=== PATIENT | male | born 1955 | race Caucasian/White ===

== ENCOUNTER 2021-04-15 20:27 | Inpatient (IN) | payer OTHER ==
[~2021-04-15] VITALS: Ht 188 cm; Wt 101.0 kg
--- NOTE | 2021-04-15 20:31 | NUR ---
PT IN BR WHEN CALLED
--- NOTE | 2021-04-15 20:48 | NUR ---
PT W AFIB RVR. FELT RAPID HR SINCE LAST NIGHT 1899. ALSO STS SWELLING IN LEG. CHEST "STIFFNESS". SOB SINCE LAST NIGHT. BP STABLE. [facility] AT BEDSIDE FOR EVAL.
[2021-04-15] MEDS ORDERED: DILTIAZEM 5 MG/ML, 5ML ONE ×2 (20:51→21:06)
[2021-04-15 20:54] LABS: MEAN CORPUSCULAR HEMOGLOBIN 31.7 pg (27.5-34.5); MEAN CORPUSCULAR HGB CONC 34.2 g/dL (33.2-36.2); MEAN PLATELET VOLUME 9.5 fL (7.4-10.4); PLATELET COUNT 97 x10^3/uL (130-400); RED CELL DISTRIBUTION WIDTH 15.9 % (9.4-14.8)
[2021-04-15] MEDS ORDERED: ASPIRIN 81 MG TABLET CHEW ONE (20:58)
[2021-04-15] MEDS ORDERED: DILTIAZEM 5 MG/ML, 5ML IV ONE ×2 (21:00→21:30)
[2021-04-15] MEDS ORDERED: ASPIRIN 81 MG TABLET CHEW PO ONE (21:00)
[2021-04-15 21:07] LABS: ALANINE AMINOTRANSFERASE 64 U/L (12-78); ALBUMIN 3.8 g/dL (3.4-5.0); ANION GAP 8 mmol/L (5-15); CALCIUM 8.9 mg/dL (8.5-10.1); CHLORIDE 108 mmol/L (98-107); CREATININE 1.42 mg/dL (0.7-1.3)
[2021-04-15 21:17] LABS: ALKALINE PHOSPHATASE 120 U/L (45-117); BILIRUBIN,TOTAL 0.9 mg/dL (0.2-1.0); TOTAL PROTEIN 7.2 g/dL (6.4-8.2); TROPONIN I < 0.015 ng/mL (0.000-0.045)
--- NOTE | 2021-04-15 21:26 | NUR ---
2ND DOSE CARDIZEM PER MD. PT REPORTS HIS CHEST FEELS LESS "STIFF AND BURNING".
[2021-04-15 21:28] LABS: BANDS%(MANUAL) 2 % (0-7); EOS#(MANUAL) 0.05 x10^3/uL (0.0-0.4); EOS% (MANUAL) 1 % (1-7); LYMPH#(MANUAL) 1.44 x10^3/uL (1-3.4); LYMPHS% (MANUAL) 30 % (22-44); METAMYELOCYTES# (MANUAL) 0.05 x10^3/uL (0-0); METAMYELOCYTES% (MANUAL) 1 % (0-1); MONOS#(MANUAL) 0.14 x10^3/uL (0.3-2.7); MONOS% (MANUAL) 3 % (2-9); SEG#(MANUAL) 3.02 x10^3/uL (1.8-6.8); SEGS% (MANUAL) 63 % (42-75)
[2021-04-15 21:29] LABS: <PLATELET ESTIMATE> DECREASED; <PLT MORPHOLOGY> NORMAL PLT MORPH; ANISOCYTOSIS 1+
[2021-04-15] MEDS ORDERED: DILTIAZEM 125 MG in SODIUM CHLORIDE 0.9% 100 ML IV SCH (22:00)
[2021-04-15] MEDS ORDERED: FUROSEMIDE 40 MG/4 ML IVPush ONE (22:00)
[2021-04-15] MEDS ORDERED: HEPARIN 25,000 UNITS/250ML PMX 250 ML ONE (22:03)
[2021-04-15] MEDS ORDERED: FUROSEMIDE 40 MG/4 ML ONE (22:03)
[2021-04-15] MEDS ORDERED: HEPARIN 5,000 UNITS/ML, 1ML ONE (22:17)
[2021-04-15] MEDS ORDERED: HEPARIN 5,000 UNITS/ML, 1ML IV ONE (22:30)
[2021-04-15] MEDS: HEPARIN 25,000 UNITS/250ML PMX 250 ML IV PRN (22:42)
[2021-04-16] MEDS ORDERED: NITROGLYCERIN 0.4 MG BOTTLE (25 TABS) SL PRN
[2021-04-16] MEDS ORDERED: DOCUSATE 100 MG CAPSULE PO PRN
[2021-04-16] MEDS ORDERED: DILTIAZEM 125 MG in SODIUM CHLORIDE 0.9% 100 ML IV SCH
[2021-04-16] MEDS ORDERED: MELATONIN 5 MG TABLET PO PRN
[2021-04-16 00:18] VITALS: BP 119/76
[2021-04-16 02:21] VITALS: BP 110/72
[2021-04-16 05:20] LABS: MEAN CORPUSCULAR HEMOGLOBIN 31.7 pg (27.5-34.5); MEAN CORPUSCULAR HGB CONC 34.2 g/dL (33.2-36.2); MEAN PLATELET VOLUME 10.9 fL (7.4-10.4); PLATELET COUNT 96 x10^3/uL (130-400); RED BLOOD COUNT 4.53 x10^6/uL (4.38-5.82); RED CELL DISTRIBUTION WIDTH 16.1 % (9.4-14.8)
[2021-04-16 05:23] LABS: ANION GAP 9 mmol/L (5-15); CALCIUM 8.8 mg/dL (8.5-10.1); CHLORIDE 108 mmol/L (98-107)
[2021-04-16 05:28] LABS: CHOL/HDL RATIO 3.9; CHOLESTEROL, TOTAL 125 mg/dL (140-239); CREATININE 1.43 mg/dL (0.7-1.3); HDL CHOL % 26 % (26-37); HDL CHOLESTEROL (DIRECT) 32 mg/dL (40-60); LDL CHOLESTEROL,CALCULATED 79 mg/dL (54-169); LDL/HDL RATIO 2.5 (0.5-3.0); TRIGLYCERIDES 72 mg/dL (50-200); TROPONIN I < 0.015 ng/mL (0.000-0.045); VLDL CHOLESTEROL 14 mg/dL (0-25)
[2021-04-16] MEDS: HEPARIN 5,000 UNITS/ML, 1ML IV PRN ×2 (05:33→12:09)
[2021-04-16 05:50] LABS: BAND#(MANUAL) 0.38 x10^3/uL; BANDS%(MANUAL) 8 % (0-7); BASOS#(MANUAL) 0.05 x10^3/uL (0-0.1); BASOS% (MANUAL) 1 % (0-1); EOS#(MANUAL) 0.05 x10^3/uL (0.0-0.4); EOS% (MANUAL) 1 % (1-7); LYMPHS% (MANUAL) 27 % (22-44); METAMYELOCYTES# (MANUAL) 0.14 x10^3/uL (0-0); METAMYELOCYTES% (MANUAL) 3 % (0-1); MONOS#(MANUAL) 0.58 x10^3/uL (0.3-2.7); MONOS% (MANUAL) 12 % (2-9); MYELOCYTES# (MANUAL) 0.05 x10^3/uL (0-0); MYELOCYTES% (MANUAL) 1 % (0-0); SEG#(MANUAL) 2.26 x10^3/uL (1.8-6.8); SEGS% (MANUAL) 47 % (42-75)
[2021-04-16 05:51] LABS: <PLATELET ESTIMATE> DECREASED; ANISOCYTOSIS 1+
[2021-04-16 05:52] LABS: LARGE PLATELETS 1+
[2021-04-16 06:56] VITALS: BP 122/80
[2021-04-16] MEDS: FUROSEMIDE 40 MG/4 ML IV SCH ×2 (07:44→17:08)
[2021-04-16] MEDS: DILTIAZEM 240 MG CAP.ER.24H PO SCH (08:44)
[2021-04-16 09:03] LABS: TROPONIN I < 0.015 ng/mL (0.000-0.045)
[2021-04-16] MEDS: ACETAMINOPHEN 325 MG TABLET PO PRN (12:21)
[2021-04-16 12:53] VITALS: BP 109/76
[2021-04-16 20:19] VITALS: BP 113/82
[2021-04-17] VITALS (7 sets, daily range): BP systolic 114–147; BP diastolic 66–93
[2021-04-17] MEDS ORDERED: DILTIAZEM 125 MG in SODIUM CHLORIDE 0.9% 100 ML IV SCH
[2021-04-17 04:38] LABS: BASOPHILS % (AUTO) 1 % (0-1); EOSINOPHILS % (AUTO) 1 % (1-7); LYMPHOCYTES % (AUTO) 25 % (22-44); MEAN CORPUSCULAR HEMOGLOBIN 31.7 pg (27.5-34.5); MEAN PLATELET VOLUME 10.6 fL (7.4-10.4); MONOCYTES % (AUTO) 14 % (2-9); NEUTROPHILS % (AUTO) 59 % (42-75); PLATELET COUNT 107 x10^3/uL (130-400); RED BLOOD COUNT 4.73 x10^6/uL (4.38-5.82); RED CELL DISTRIBUTION WIDTH 16.1 % (9.4-14.8)
[2021-04-17 04:46] LABS: ANION GAP 9 mmol/L (5-15); CALCIUM 8.7 mg/dL (8.5-10.1); CHLORIDE 103 mmol/L (98-107)
[2021-04-17] MEDS ORDERED: REGADENOSON 0.4 MG/5 ML SYRINGE ONE (08:06)
[2021-04-17] MEDS: FUROSEMIDE 40 MG/4 ML IV SCH (09:50)
[2021-04-17] MEDS: DILTIAZEM 240 MG CAP.ER.24H PO SCH (09:50)
[2021-04-17] MEDS ORDERED: POTASSIUM CHLORIDE 20 MEQ TAB.ER.PRT PO ONE (15:30)
[2021-04-17] MEDS ORDERED: DIGOXIN 0.25 MG/ML, 2ML IVPush ONE (15:30)
[2021-04-17] MEDS: ACETAMINOPHEN 325 MG TABLET PO PRN (16:07)
[2021-04-17] MEDS: HEPARIN 25,000 UNITS/250ML PMX 250 ML IV PRN (16:46)
[2021-04-17] MEDS: CARVEDILOL 6.25 MG TABLET PO SCH (18:45)
[2021-04-18 01:59] VITALS: BP 115/84
[2021-04-18 05:10] LABS: MEAN CORPUSCULAR HEMOGLOBIN 31.7 pg (27.5-34.5); MEAN CORPUSCULAR HGB CONC 34.2 g/dL (33.2-36.2); MEAN PLATELET VOLUME 10.4 fL (7.4-10.4); PLATELET COUNT 106 x10^3/uL (130-400); RED BLOOD COUNT 5.35 x10^6/uL (4.38-5.82); RED CELL DISTRIBUTION WIDTH 16.2 % (9.4-14.8)
[2021-04-18 05:12] LABS: ALANINE AMINOTRANSFERASE 59 U/L (12-78); ALBUMIN 3.7 g/dL (3.4-5.0); ANION GAP 5 mmol/L (5-15); CALCIUM 9.2 mg/dL (8.5-10.1); CHLORIDE 101 mmol/L (98-107); CREATININE 1.56 mg/dL (0.7-1.3)
[2021-04-18 05:15] LABS: ALKALINE PHOSPHATASE 134 U/L (45-117); BILIRUBIN,TOTAL 1.2 mg/dL (0.2-1.0); TOTAL PROTEIN 7.4 g/dL (6.4-8.2)
[2021-04-18 05:56] VITALS: BP 109/82
[2021-04-18] MEDS: CARVEDILOL 6.25 MG TABLET PO SCH ×2 (05:56→17:49)
[2021-04-18 06:03] LABS: BAND#(MANUAL) 0.69 x10^3/uL; BANDS%(MANUAL) 11 % (0-7); BASOS#(MANUAL) 0.06 x10^3/uL (0-0.1); BASOS% (MANUAL) 1 % (0-1); EOS#(MANUAL) 0.06 x10^3/uL (0.0-0.4); EOS% (MANUAL) 1 % (1-7); LYMPH#(MANUAL) 1.58 x10^3/uL (1-3.4); LYMPHS% (MANUAL) 25 % (22-44); METAMYELOCYTES# (MANUAL) 0.19 x10^3/uL (0-0); METAMYELOCYTES% (MANUAL) 3 % (0-1); MONOS#(MANUAL) 1.07 x10^3/uL (0.3-2.7); MONOS% (MANUAL) 17 % (2-9); SEG#(MANUAL) 2.65 x10^3/uL (1.8-6.8); SEGS% (MANUAL) 42 % (42-75)
[2021-04-18 06:04] LABS: <PLATELET ESTIMATE> DECREASED; <PLT MORPHOLOGY> NORMAL PLT MORPH; <RBC MORPHOLOGY> NORMAL
[2021-04-18 07:43] VITALS: BP 118/90
[2021-04-18] MEDS ORDERED: OMNIPAQUE 350 MG/ML, 75ML BOTTLE ONE (08:42)
[2021-04-18] MEDS: DILTIAZEM 240 MG CAP.ER.24H PO SCH (08:55)
[2021-04-18 12:06] LABS: MICROSCOPIC NOT IND
[2021-04-18] MEDS ORDERED: PHARMACY MAY ADJ FOR RENAL FX MC PRN (14:30)
[2021-04-18 15:35] VITALS: BP 122/82
[2021-04-18] MEDS: ACETAMINOPHEN 325 MG TABLET PO PRN (15:50)
[2021-04-18 17:49] VITALS: BP 112/63
[2021-04-18] MEDS: RIVAROXABAN 15 MG TABLET PO SCH (17:49)
[2021-04-18 20:48] VITALS: BP 118/77
[2021-04-19 00:35] VITALS: BP 157/82
[2021-04-19 06:06] VITALS: BP 140/86
[2021-04-19] MEDS: CARVEDILOL 6.25 MG TABLET PO SCH (06:07)
[2021-04-19 07:15] VITALS: BP 117/71
[2021-04-19] MEDS: DILTIAZEM 240 MG CAP.ER.24H PO SCH (08:36)
[2021-04-19] MEDS: RIVAROXABAN 15 MG TABLET PO SCH (08:36)
[2021-04-19] MEDS ORDERED: RIVA1TAB PO (12:14)
[2021-04-19] MEDS ORDERED: CARV6.2512 PO (12:14)
[2021-04-19] MEDS ORDERED: DILT240C55 PO (12:14)
[2021-05-09] MEDS ORDERED: RIVAROXABAN 20 MG TABLET PO SCH (17:00)
== END 2021-04-19 14:56 | disposition home or self-care (01) | DRG 291 ==
LOC: ED 21:00 → EDIP 23:12 → 5SO 23:45
PROVIDERS: ADMIT Family Medicine; ATTEND Internal Medicine
DX: I11.0 Hypertensive heart disease with heart failure (principal); I26.99 Other pulmonary embolism without acute cor pulmonale; I50.31 Acute diastolic (congestive) heart failure; N17.0 Acute kidney failure with tubular necrosis; D68.69 Other thrombophilia; I48.91 Unspecified atrial fibrillation; R07.2 Precordial pain; Z20.822 Contact with and (suspected) exposure to COVID-19; F41.9 Anxiety disorder, unspecified; D69.6 Thrombocytopenia, unspecified; Z79.01 Long term (current) use of anticoagulants; Z87.891 Personal history of nicotine dependence; Z90.49 Acquired absence of other specified parts of digestive tract
CPT/HCPCS: 36415; 71045; 71275; 78452; 80048; 80053; 80061; 81003; 82607; 83735; 83880; 84100; 84443; 84484; 85025; 85520; 87635; 93005; 93017; 93306; 93970; 96374; 99291; G0378; J1644; J1940; J2785; Q9967; A9502; J1160

== ENCOUNTER 2021-06-09 07:35 | Day surgery (SDC) | payer MEDICARE ==
[~2021-06-09] VITALS: Ht 188 cm; Wt 100.0 kg
[~2021-06-09 07:35] MED LIST: CARV6.2512 PO; DILT240C55 PO; RIVA1TAB PO
[2021-06-09] MEDS ORDERED: CARV6.252 PO (08:01)
[2021-06-09] MEDS ORDERED: RIVA15TA PO (08:01)
[2021-06-09] MEDS ORDERED: DILT-88 PO (08:01)
[2021-06-09 08:16] LABS: MEAN CORPUSCULAR HEMOGLOBIN 32.7 pg (27.5-34.5); MEAN CORPUSCULAR HGB CONC 34.2 g/dL (33.2-36.2); MEAN PLATELET VOLUME 8.1 fL (7.4-10.4); PLATELET COUNT 134 x10^3/uL (130-400); RED BLOOD COUNT 4.18 x10^6/uL (4.38-5.82); RED CELL DISTRIBUTION WIDTH 17.7 % (9.4-14.8)
[2021-06-09 08:27] LABS: CALCIUM 9.2 mg/dL (8.5-10.1); CHOLESTEROL, TOTAL 171 mg/dL (140-239); CREATININE 1.44 mg/dL (0.7-1.3)
[2021-06-09 08:30] LABS: CHOL/HDL RATIO 5.9; HDL CHOL % 17 % (26-37); HDL CHOLESTEROL (DIRECT) 29 mg/dL (40-60); LDL CHOLESTEROL,CALCULATED 115 mg/dL (54-169); TRIGLYCERIDES 135 mg/dL (50-200); VLDL CHOLESTEROL 27 mg/dL (0-25)
[2021-06-09 08:49] LABS: EOS#(MANUAL) 0.04 x10^3/uL (0.0-0.4); EOS% (MANUAL) 2 % (1-7); LYMPH#(MANUAL) 1.18 x10^3/uL (1-3.4); LYMPHS% (MANUAL) 56 % (22-44); MONOS#(MANUAL) 0.04 x10^3/uL (0.3-2.7); MONOS% (MANUAL) 2 % (2-9); SEG#(MANUAL) 0.84 x10^3/uL (1.8-6.8); SEGS% (MANUAL) 40 % (42-75)
[2021-06-09 08:50] LABS: <PLATELET ESTIMATE> ADEQUATE; <PLT MORPHOLOGY> NORMAL PLT MORPH; <RBC MORPHOLOGY> NORMAL
[2021-06-09 08:53] LABS: ANION GAP 7 mmol/L (5-15); CHLORIDE 109 mmol/L (98-107)
[2021-06-09] MEDS ORDERED: PROPOFOL 10 MG/ML, 20ML ONE (09:38)
== END 2021-06-09 10:45 | disposition home or self-care (01) ==
LOC: CACL 07:35
PROVIDERS: ATTEND Internal Medicine Clinical Cardiac Electrophysiology
DX: I48.19 Other persistent atrial fibrillation (principal); Z79.01 Long term (current) use of anticoagulants; Z79.899 Other long term (current) drug therapy
CPT/HCPCS: 36415; 80048; 80061; 85025; 92960; 93005; J2704

== ENCOUNTER → 2021-06-10 | Outpatient (CLI) | payer MEDICARE ==
[~2021-06-10] MED LIST changes: +CARV6.252 PO; +DILT-88 PO; +RIVA15TA PO
[2021-06-10 13:00] LABS: BASOPHILS % (AUTO) 1 % (0-1); EOSINOPHILS % (AUTO) 1 % (1-7); LYMPHOCYTES % (AUTO) 52 % (22-44); MEAN CORPUSCULAR HEMOGLOBIN 32.4 pg (27.5-34.5); MEAN CORPUSCULAR HGB CONC 33.4 g/dL (33.2-36.2); MEAN PLATELET VOLUME 8.1 fL (7.4-10.4); MONOCYTES % (AUTO) 6 % (2-9); NEUTROPHILS % (AUTO) 41 % (42-75); PLATELET COUNT 127 x10^3/uL (130-400); RED BLOOD COUNT 4.18 x10^6/uL (4.38-5.82)
[2021-06-10 13:15] LABS: HCT (SEDRATE) 40.1 % (39.2-51.8)
[2021-06-10 13:23] LABS: ANION GAP 4 mmol/L (5-15); CALCIUM 8.2 mg/dL (8.5-10.1); CHLORIDE 108 mmol/L (98-107)
[2021-06-10 13:50] LABS: ANISOCYTOSIS 1+; LYMPHS% (MANUAL) 50 % (22-44); MONOS#(MANUAL) 0.08 x10^3/uL (0.3-2.7); MONOS% (MANUAL) 3 % (2-9); REACTIVE LYMPHS # (MANUAL) 0.18 x10^3/uL (0-0); REACTIVE LYMPHS % (MANUAL) 7 % (0-0); SEG#(MANUAL) 1.04 x10^3/uL (1.8-6.8); SEGS% (MANUAL) 40 % (42-75)
[2021-06-10 13:51] LABS: <PLATELET ESTIMATE> DECREASED; <PLT MORPHOLOGY> NORMAL PLT MORPH; ALANINE AMINOTRANSFERASE 40 U/L (12-78); ALBUMIN 3.5 g/dL (3.4-5.0); ALKALINE PHOSPHATASE 91 U/L (45-117); BILIRUBIN,TOTAL 0.6 mg/dL (0.2-1.0); C-REACTIVE PROTEIN, QUANT 0.27 mg/dL (0.02-0.49); CREATININE 1.31 mg/dL (0.7-1.3); TOTAL PROTEIN 7.2 g/dL (6.4-8.2)
== END | disposition home or self-care (01) ==
LOC: LAB 12:23
PROVIDERS: ATTEND Nurse Practitioner Family
DX: D70.9 Neutropenia, unspecified (principal)
CPT/HCPCS: 36415; 80053; 82525; 82607; 82746; 83655; 84443; 85025; 85651; 86140; 87806; G0475

== ENCOUNTER → 2021-06-17 | Outpatient (CLI) | payer MEDICARE ==
[2021-06-17 16:53] LABS: ALANINE AMINOTRANSFERASE 61 U/L (12-78); ALBUMIN 3.6 g/dL (3.4-5.0); ANION GAP 4 mmol/L (5-15); CALCIUM 9.3 mg/dL (8.5-10.1); CHLORIDE 107 mmol/L (98-107); CREATININE 1.39 mg/dL (0.7-1.3); INTERNATIONAL NORMALIZED RATIO 1.07 (0.93-1.1); PROTHROMBIN TIME 11.4 Seconds (9.6-11.5)
[2021-06-17 16:56] LABS: ALKALINE PHOSPHATASE 98 U/L (45-117); BILIRUBIN,TOTAL 0.5 mg/dL (0.2-1.0); TOTAL PROTEIN 7.8 g/dL (6.4-8.2)
[2021-06-17 16:59] LABS: MEAN CORPUSCULAR HEMOGLOBIN 33.1 pg (27.5-34.5); MEAN CORPUSCULAR HGB CONC 34.2 g/dL (33.2-36.2); RED CELL DISTRIBUTION WIDTH 18.1 % (9.4-14.8)
[2021-06-17 18:29] LABS: SEGS% (MANUAL) 29 % (42-75)
[2021-06-17 18:30] LABS: EOS#(MANUAL) 0.06 x10^3/uL (0.0-0.4); EOS% (MANUAL) 2 % (1-7); LYMPH#(MANUAL) 1.74 x10^3/uL (1-3.4); LYMPHS% (MANUAL) 56 % (22-44); MONOS#(MANUAL) 0.22 x10^3/uL (0.3-2.7); MONOS% (MANUAL) 7 % (2-9); REACTIVE LYMPHS # (MANUAL) 0.19 x10^3/uL (0-0); REACTIVE LYMPHS % (MANUAL) 6 % (0-0)
[2021-06-17 18:44] LABS: <RBC MORPHOLOGY> NORMAL
== END | disposition home or self-care (01) ==
LOC: LAB 16:19
PROVIDERS: ATTEND Nurse Practitioner Family
DX: D70.9 Neutropenia, unspecified (principal); R21 Rash and other nonspecific skin eruption
CPT/HCPCS: 36415; 80053; 85025; 85610; 86038; 86592

== ENCOUNTER 2021-06-30 10:38 | Emergency (ER) | payer MEDICARE ==
[~2021-06-30] VITALS: Ht 188 cm; Wt 105.4 kg
--- NOTE | 2021-06-30 10:59 | NUR ---
SIGNAL FITTER: EKG COMPLETED IN TRIAGE.
--- NOTE | 2021-06-30 11:03 | NUR ---
patient began having chest pain last night, he reports he was relaxing at home. it's not improved today. currently in afib being treated lilliana miranda are treating him for it. he has been started on diltaizem xaralto and carvedelol. patient was seen here in march and dx with afib, and then subsequently came back in april and was cardioverted. now, patient reports feeling weak sob. he is in afib in
[2021-06-30] MEDS ORDERED: MAALOX/HYOSCYAMINE/LIDOCAINE 45 ML BTL ONE (11:53)
--- NOTE | 2021-06-30 11:57 | NUR ---
xray in room
[2021-06-30] MEDS ORDERED: MAALOX/HYOSCYAMINE/LIDOCAINE 45 ML BTL PO ONE (12:00)
[2021-06-30 12:13] LABS: MEAN CORPUSCULAR HEMOGLOBIN 33.7 pg (27.5-34.5); MEAN PLATELET VOLUME 8.9 fL (7.4-10.4); PLATELET COUNT 91 x10^3/uL (130-400); RED BLOOD COUNT 3.72 x10^6/uL (4.38-5.82); RED CELL DISTRIBUTION WIDTH 18.3 % (9.4-14.8)
[2021-06-30 12:24] LABS: ALBUMIN 3.3 g/dL (3.4-5.0); ANION GAP 6 mmol/L (5-15); CALCIUM 8.9 mg/dL (8.5-10.1); CHLORIDE 100 mmol/L (98-107); CREATININE 1.71 mg/dL (0.7-1.3)
[2021-06-30 12:28] LABS: TROPONIN I < 0.015 ng/mL (0.000-0.045)
[2021-06-30 12:33] LABS: BANDS%(MANUAL) 4 % (0-7); LYMPH#(MANUAL) 1.92 x10^3/uL (1-3.4); LYMPHS% (MANUAL) 26 % (22-44); METAMYELOCYTES# (MANUAL) 0.15 x10^3/uL (0-0); METAMYELOCYTES% (MANUAL) 2 % (0-1); MONOS#(MANUAL) 3.63 x10^3/uL (0.3-2.7); MONOS% (MANUAL) 49 % (2-9); SEG#(MANUAL) 1.41 x10^3/uL (1.8-6.8); SEGS% (MANUAL) 19 % (42-75)
[2021-06-30 12:37] LABS: <PLATELET ESTIMATE> DECREASED; <PLT MORPHOLOGY> NORMAL PLT MORPH; ANISOCYTOSIS 1+; POLYCHROMASIA 1+
[2021-06-30] MEDS ORDERED: ALBUTEROL SULFATE 2.5 MG/3 ML ONE (13:47)
[2021-06-30] MEDS ORDERED: ALBUTEROL SULFATE 2.5 MG/3 ML NPPB ONE (14:00)
[2021-06-30] MEDS ORDERED: CEFTRIAXONE 1,000 MG ONE (14:15)
--- NOTE | 2021-06-30 14:22 | NUR ---
has concerns patient has infection because prior to this visit he's been low wbc count, family member told her maybe today it's wnl bc infection. requested more meds abx and tests.
[2021-06-30] MEDS ORDERED: CEFTRIAXONE 1,000 MG IM ONE (14:30)
[2021-06-30 14:32] VITALS: BP 105/78
--- NOTE | 2021-06-30 14:34 | NUR ---
patient discharge reivewed, going to get u/s across street previous order. feels improved.
== END 2021-06-30 14:42 | disposition home or self-care (01) ==
LOC: ED 11:32
DX: D69.3 Immune thrombocytopenic purpura (principal); Z20.822 Contact with and (suspected) exposure to COVID-19; R07.89 Other chest pain; R73.9 Hyperglycemia, unspecified; R94.31 Abnormal electrocardiogram [ECG] [EKG]; I50.9 Heart failure, unspecified; I48.91 Unspecified atrial fibrillation; Z79.01 Long term (current) use of anticoagulants
CPT/HCPCS: 36415; 71045; 80048; 82040; 84484; 85025; 87040; 93005; 94640; 96372; 99285; J0696; J7613; U0003; U0005; 76700

== ENCOUNTER 2021-06-30 14:58 | Outpatient (CLI) | payer MEDICARE | END 2021-06-30 23:59 | disposition home or self-care (01) | LOC: CFH 14:58 | PROVIDERS: ATTEND Internal Medicine Hematology & Oncology | DX: R16.2 Hepatomegaly with splenomegaly, not elsewhere classified (principal); D70.9 Neutropenia, unspecified | CPT/HCPCS: 76700 ==

== ENCOUNTER 2021-07-14 07:39 | Day surgery (SDC) | payer MEDICARE ==
[~2021-07-14] VITALS: Ht 188 cm; Wt 98.5 kg
[2021-07-14 08:22] VITALS: BP 106/73
[2021-07-14 08:58] LABS: MEAN CORPUSCULAR HEMOGLOBIN 34.4 pg (27.5-34.5); MEAN CORPUSCULAR HGB CONC 35.3 g/dL (33.2-36.2); MEAN PLATELET VOLUME 8.5 fL (7.4-10.4); PLATELET COUNT 129 x10^3/uL (130-400); RED BLOOD COUNT 3.73 x10^6/uL (4.38-5.82); RED CELL DISTRIBUTION WIDTH 16.8 % (9.4-14.8)
[2021-07-14 09:11] LABS: <PLATELET ESTIMATE> DECREASED; <PLT MORPHOLOGY> NORMAL PLT MORPH; ANISOCYTOSIS 1+; BAND#(MANUAL) 0.02 x10^3/uL; BANDS%(MANUAL) 1 % (0-7); EOS#(MANUAL) 0.02 x10^3/uL (0.0-0.4); EOS% (MANUAL) 1 % (1-7); LYMPH#(MANUAL) 1.17 x10^3/uL (1-3.4); LYMPHS% (MANUAL) 65 % (22-44); MONOS#(MANUAL) 0.27 x10^3/uL (0.3-2.7); MONOS% (MANUAL) 15 % (2-9); SEG#(MANUAL) 0.32 x10^3/uL (1.8-6.8); SEGS% (MANUAL) 18 % (42-75)
[2021-07-14 09:12] LABS: OVALOCYTES 1+
[2021-07-14] MEDS ORDERED: MIDAZOLAM 1 MG/ML, 5ML ONE (09:52)
[2021-07-14] MEDS ORDERED: FLUMAZENIL 0.1 MG/1 ML, 5ML ONE (09:52)
[2021-07-14] MEDS ORDERED: NALOXONE 1 MG/ML, 2ML ONE (09:52)
[2021-07-14] MEDS ORDERED: FENTANYL PF 100 MCG/2ML ONE ×2 (09:52)
== END 2021-07-14 11:45 | disposition home or self-care (01) ==
LOC: RAD 07:39
PROVIDERS: ATTEND Internal Medicine Hematology & Oncology
DX: D70.8 Other neutropenia (principal); I48.91 Unspecified atrial fibrillation; Z79.01 Long term (current) use of anticoagulants; Z79.899 Other long term (current) drug therapy; Z90.49 Acquired absence of other specified parts of digestive tract; Z98.890 Other specified postprocedural states; Z87.891 Personal history of nicotine dependence; Z72.89 Other problems related to lifestyle
CPT/HCPCS: 36415; 38222; 77012; 85025; 85060; 85097; 88237; 88264; 88280; 88305; 88311; 88341; 88342; 99156; J2250; J3010; J2310

== ENCOUNTER → 2021-07-24 | Outpatient (CLI) | payer MEDICARE ==
[~2021-07-24] MED LIST changes: +OMNIPAQUE 350 MG/ML, 100ML BOTTLE ONE
== END | disposition home or self-care (01) ==
LOC: CFH 13:09
PROVIDERS: ATTEND Internal Medicine Hematology & Oncology
DX: C92.00 Acute myeloblastic leukemia, not having achieved remission (principal); K80.20 Calculus of gallbladder without cholecystitis without obstruction; K40.90 Unilateral inguinal hernia, without obstruction or gangrene, not specified as recurrent; K57.30 Diverticulosis of large intestine without perforation or abscess without bleeding; D70.9 Neutropenia, unspecified; I51.7 Cardiomegaly; M51.34 Other intervertebral disc degeneration, thoracic region; M43.8X4 Other specified deforming dorsopathies, thoracic region; I70.0 Atherosclerosis of aorta
CPT/HCPCS: 71260; 74177; Q9967

== ENCOUNTER → 2021-07-27 | Outpatient (CLI) | payer MEDICARE ==
[~2021-07-27] MED LIST changes: -OMNIPAQUE 350 MG/ML, 100ML BOTTLE ONE
== END | disposition home or self-care (01) ==
LOC: CVU 09:12
PROVIDERS: ATTEND Physician Assistant Medical
DX: I08.8 Other rheumatic multiple valve diseases (principal); I48.91 Unspecified atrial fibrillation
CPT/HCPCS: 93306